=== PATIENT | female | born 1975 | race Hispanic/Latino ===

== ENCOUNTER 2023-12-20 09:56 | Emergency (ER) | payer BC ==
[2023-12-20] MEDS ORDERED: diphenhydrAMINE 50 MG/ML VIAL ONE (11:52)
[2023-12-20] MEDS ORDERED: Prochlorperazine 10 MG/2 ML VIAL ONE (11:56)
[2023-12-20 12:36] LABS: #Basophils 0.03 10x3/uL (0.0-0.2); #Eosinphils Less than 0.03 10x3/uL (0.0-0.7); %Basophils 0.2 % (0.0-1.0); %Lymphocytes 15.3 % (21.0-51.0); %Monocytes 6.3 % (0.0-10.0); %Neutrophils 76.9 % (42.0-75.0); Hematocrit 35.7 % (36.0-47.0); Hemoglobin 11.5 g/dL (12.0-16.0); Mean Corpuscular HGB CONC 32.2 g/dL (32.0-36.0); Mean Corpuscular Volume 83.8 fL (78.0-98.0); Mean Platelet Volume 9.8 fL (7.4-10.4); Platelet Count 580 10x3/uL (130-400); RBC Distribution Width 14.6 % (11.5-14.5); Red Blood Cell (RBC) Count 4.26 mill/uL (4.20-5.40)
[2023-12-20 12:48] LABS: Anion Gap 13 mmol/L (10-20); BUN (Urea Nitrogen) 6 mg/dL (7.0-18.7); Calc. Creatinine Clearance 0 mL/min (70-130); Calcium 8.9 mg/dL (7.8-10.44); Carbon Dioxide 25 mmol/L (22-29); Chloride 103 mmol/L (98-107); Estimated GFR 110; Glucose 95 mg/dL (70-105); Potassium 3.8 mmol/L (3.5-5.1); Sodium 137 mmol/L (136-145)
[2023-12-20 12:56] LABS: PTT 35.6 sec (22.9-36.1); Prothrombin Time 13.3 sec (12.0-14.7)
[2023-12-20] MEDS ORDERED: Ketorolac Tromethamine 30 MG (1 mL) VIAL ONE (14:53)
== END 2023-12-20 17:40 | disposition home or self-care (01) ==
LOC: ERS 09:56
DX: R51.9 Headache, unspecified (principal); R11.0 Nausea; R29.700 NIHSS score 0
CPT/HCPCS: 36415; 70450; 80048; 85025; 85610; 85730; 96374; 96375; J0780; J1200; J1885

== ENCOUNTER 2024-01-17 10:00 | Inpatient (IN) | payer BC ==
[2024-01-17 11:08] LABS: #Basophils 0.03 10x3/uL (0.0-0.2); #Eosinophils Less than 0.03 10x3/uL (0.0-0.7); %Basophils 0.4 % (0.0-1.0); %Monocytes 6.2 % (0.0-10.0); Hematocrit 36.9 % (36.0-47.0); Hemoglobin 11.3 g/dL (12.0-16.0); Mean Corpuscular HGB CONC 30.6 g/dL (32.0-36.0); Mean Corpuscular Hemoglobin 26.2 pg (27.0-31.0); Mean Corpuscular Volume 85.6 fL (78.0-98.0); Mean Platelet Volume 8.8 fL (7.4-10.4); Platelet Count 560 10x3/uL (130-400); RBC Distribution Width 15.5 % (11.5-14.5); Red Blood Cell (RBC) Count 4.31 mill/uL (4.20-5.40)
[2024-01-17 11:29] LABS: ALT (SGPT) 12 U/L (8-55); AST (SGOT) 14 U/L (5-34); Albumin 3.6 g/dL (3.5-5.0); Alkaline Phosphatase 74 U/L (40-110); Anion Gap 11 mmol/L (10-20); BUN (Urea Nitrogen) 8 mg/dL (7.0-18.7); Bilirubin, Total 0.2 mg/dL (0.2-1.2); Calc. Creatinine Clearance 0 mL/min (70-130); Calcium 8.7 mg/dL (7.8-10.44); Carbon Dioxide 26 mmol/L (22-29); Chloride 105 mmol/L (98-107); Estimated GFR 111; Globulin 2.9 g/dL (2.4-3.5); Glucose 90 mg/dL (70-105); Potassium 3.9 mmol/L (3.5-5.1); Protein, Total 6.5 g/dL (6.0-8.3); Sodium 138 mmol/L (136-145)
[2024-01-17] MEDS ORDERED: Lidocaine 1% PF 5 ML VIAL ONE ×2 (12:17→19:41)
[2024-01-17] MEDS ORDERED: Acetaminophen/Codeine 30-300mg Tablet PO PRN (12:50)
[2024-01-17] MEDS ORDERED: Acetaminophen 325 MG TAB PO PRN (12:50)
[2024-01-17 15:31] VITALS: BMI 40.3
[2024-01-17] MEDS: FLU (Fluarix Triv) TS24-25(6MOS UP)/PF 45 MCG/0.5 ML Syringe IM ONE (16:00)
[2024-01-17] MEDS ORDERED: tiZANidine HCl 4 MG TAB PO PRN (19:00)
[2024-01-17] MEDS ORDERED: Vancomycin 1 GM in Premix 1 BAG IVPB SCH (19:00)
[2024-01-17] MEDS ORDERED: Vancomycin 1 GM VIAL ONE ×3 (19:14→22:09)
[2024-01-17] MEDS ORDERED: Thrombin 5000 UNITS/5 ML VIAL ONE (19:14)
[2024-01-17 19:37] LABS: Prothrombin Time 13.4 sec (12.0-14.7)
[2024-01-17 19:38] LABS: PTT 32.8 sec (22.9-36.1)
[2024-01-17] MEDS ORDERED: Bacitracin Zinc Ointment 30 gm TUBE ONE (19:39)
[2024-01-17] MEDS ORDERED: Ondansetron PF 4 MG/2 ML Vial ONE (19:41)
[2024-01-17] MEDS ORDERED: PROPOFOL 20 ML ONE (19:41)
[2024-01-17] MEDS ORDERED: Dexamethasone 20 MG/5 ML VIAL ONE (19:41)
[2024-01-17] MEDS ORDERED: Rocuronium Bromide 10 MG/ML (10ML VIAL) ONE (19:41)
[2024-01-17] MEDS ORDERED: Fentanyl 250 MCG/5 ML VIAL ONE (19:41)
[2024-01-17] MEDS ORDERED: PHENYLEPHRINE-NS 100 MCG/ML 10 ML SYRINGE ONE (20:28)
[2024-01-17] MEDS ORDERED: Phenylephrine 10 MG/ML VIAL ONE (20:57)
[2024-01-17] MEDS ORDERED: SUGAMMADEX SODIUM 200 MG/2 ML VIAL ONE (21:04)
[2024-01-17] MEDS ORDERED: Promethazine HCl 25 MG/ML VIAL IM PRN (22:09)
[2024-01-17] MEDS ORDERED: HYDROmorphone 2 MG/ML VIAL SLOW IVP PRN (22:09)
[2024-01-17] MEDS ORDERED: Ondansetron HCl/PF 4 MG/2 ML Vial IVP PRN (22:09)
[2024-01-17] MEDS ORDERED: HYDROmorphone 2 MG/ML VIAL ONE (22:25)
[2024-01-17] MEDS ORDERED: fentaNYL 50 mcg/mL 1 mL Vial ONE ×2 (23:16→23:39)
[2024-01-17] MEDS ORDERED: Vancomycin (BATCH) 1.5 GM/300 ML BAG ONE (23:57)
[2024-01-18] MEDS ORDERED: fentaNYL 50 mcg/mL 1 mL Vial ONE (00:27)
[2024-01-18] MEDS: HYDROcodone/Acetaminophen 5/325 mg Tablet PO PRN (03:13)
[2024-01-18] MEDS: cefTRIAXone\\ROCEPHIN 1 GM in Sodium Chloride 0.9% 100 ML IVPB SCH (03:27)
[2024-01-18] MEDS: Vancomycin (BATCH) 1.5 GM in Premix 1 BAG IVPB SCH ×2 (03:38→09:27)
[2024-01-18 04:44] LABS: #Basophils 0.04 10x3/uL (0.0-0.2); #Eosinophils Less than 0.03 10x3/uL (0.0-0.7); %Basophils 0.3 % (0.0-1.0); %Lymphocytes 14.5 % (21.0-51.0); %Monocytes 5.4 % (0.0-10.0); %Neutrophils 78.5 % (42.0-75.0); Hematocrit 35.9 % (36.0-47.0); Mean Corpuscular HGB CONC 30.6 g/dL (32.0-36.0); Mean Corpuscular Hemoglobin 26.8 pg (27.0-31.0); Mean Corpuscular Volume 87.6 fL (78.0-98.0); Mean Platelet Volume 8.9 fL (7.4-10.4); Platelet Count 534 10x3/uL (130-400); RBC Distribution Width 15.4 % (11.5-14.5)
[2024-01-18 04:59] LABS: Vancomycin, Random 10.7 ug/mL (See Comment)
[2024-01-18 05:02] LABS: Anion Gap 12 mmol/L (10-20); BUN (Urea Nitrogen) 7 mg/dL (7.0-18.7); Calc. Creatinine Clearance 209 mL/min (70-130); Calcium 8.1 mg/dL (7.8-10.44); Carbon Dioxide 22 mmol/L (22-29); Chloride 107 mmol/L (98-107); Estimated GFR 111; Glucose 115 mg/dL (70-105); Potassium 4.1 mmol/L (3.5-5.1); Sodium 137 mmol/L (136-145)
[2024-01-18] MEDS: Morphine 2 MG/ML VIAL SLOW IVP PRN (05:52)
[2024-01-18] MEDS ORDERED: Levothyroxine Sodium 50 MCG TAB PO SCH (06:00)
[2024-01-18] MEDS: HYDROcodone/Acetaminophen 10/325 mg Tablet PO PRN (07:58)
[2024-01-18 08:52] LABS: Vancomycin, Random 16.9 ug/mL (See Comment)
[2024-01-18] MEDS ORDERED: Ondansetron PF 4 MG/2 ML Vial IVP PRN (14:36)
[2024-01-18] MEDS: cefTRIAXone\\ROCEPHIN 2 GM in Sodium Chloride 0.9% 100 ML IVPB SCH (17:31)
[2024-01-19 04:28] LABS: #Basophils 0.04 10x3/uL (0.0-0.2); #Eosinophils Less than 0.03 10x3/uL (0.0-0.7); %Basophils 0.4 % (0.0-1.0); %Lymphocytes 25.9 % (21.0-51.0); %Monocytes 7.4 % (0.0-10.0); %Neutrophils 64.8 % (42.0-75.0); Hematocrit 34.4 % (36.0-47.0); Hemoglobin 10.7 g/dL (12.0-16.0); Mean Corpuscular HGB CONC 31.1 g/dL (32.0-36.0); Mean Corpuscular Hemoglobin 26.4 pg (27.0-31.0); Mean Corpuscular Volume 84.7 fL (78.0-98.0); Platelet Count 510 10x3/uL (130-400); RBC Distribution Width 15.6 % (11.5-14.5); Red Blood Cell (RBC) Count 4.06 mill/uL (4.20-5.40)
[2024-01-19] MEDS: cefTRIAXone\\ROCEPHIN 2 GM in Sodium Chloride 0.9% 100 ML IVPB SCH (12:00)
[2024-01-20 04:29] LABS: #Basophils 0.04 10x3/uL (0.0-0.2); #Eosinophils Less than 0.03 10x3/uL (0.0-0.7); %Basophils 0.4 % (0.0-1.0); %Lymphocytes 32.9 % (21.0-51.0); %Monocytes 7.2 % (0.0-10.0); %Neutrophils 57.2 % (42.0-75.0); Hematocrit 35.4 % (36.0-47.0); Hemoglobin 10.6 g/dL (12.0-16.0); Mean Corpuscular HGB CONC 29.9 g/dL (32.0-36.0); Mean Corpuscular Hemoglobin 26.2 pg (27.0-31.0); Mean Corpuscular Volume 87.4 fL (78.0-98.0); Mean Platelet Volume 9.4 fL (7.4-10.4); Platelet Count 465 10x3/uL (130-400); RBC Distribution Width 15.5 % (11.5-14.5); Red Blood Cell (RBC) Count 4.05 mill/uL (4.20-5.40)
[2024-01-20] MEDS: VANCOMYCIN IVPB SCH (09:13)
[2024-01-20] MEDS: SODIUM CHLORIDE 0.9% IVPB SCH (09:13)
[2024-01-20] MEDS: Acetaminophen/Codeine 30-300mg Tablet PO PRN (09:26)
[2024-01-21 04:57] LABS: #Basophils 0.03 10x3/uL (0.0-0.2); #Eosinophils Less than 0.03 10x3/uL (0.0-0.7); %Basophils 0.3 % (0.0-1.0); %Lymphocytes 29.1 % (21.0-51.0); %Neutrophils 61.6 % (42.0-75.0); Hematocrit 33.3 % (36.0-47.0); Hemoglobin 10.2 g/dL (12.0-16.0); Mean Corpuscular HGB CONC 30.6 g/dL (32.0-36.0); Mean Corpuscular Hemoglobin 26.6 pg (27.0-31.0); Mean Corpuscular Volume 86.7 fL (78.0-98.0); Mean Platelet Volume 8.9 fL (7.4-10.4); Platelet Count 502 10x3/uL (130-400); RBC Distribution Width 15.5 % (11.5-14.5); Red Blood Cell (RBC) Count 3.84 mill/uL (4.20-5.40)
[2024-01-21 05:41] LABS: Vancomycin, Random 20.3 ug/mL (See Comment)
[2024-01-21] MEDS: Vancomycin (BATCH) 2 GM in Premix 1 BAG IVPB SCH (09:27)
[2024-01-22] MEDS: hydrALAZINE 20 MG/ML VIAL SLOW IVP PRN (06:10)
[2024-01-22] MEDS: Senokot S 8.6-50 MG TAB PO PRN (20:37)
[2024-01-23 08:03] LABS: Vancomycin, Random 13.7 ug/mL (See Comment)
[2024-01-23] MEDS: Labetalol HCl 100 MG/20 ML VIAL SLOW IVP PRN (21:44)
[2024-01-23 21:46] VITALS: BP 152/96
[2024-01-23] MEDS: Vancomycin (BATCH) 1.5 GM in Premix 1 BAG IVPB SCH (22:29)
[2024-01-24 04:41] LABS: Vancomycin, Random 17.5 ug/mL (See Comment)
[2024-01-24 14:53] VITALS: BMI 42.5
[2024-01-24] MEDS: cefTRIAXone (ROCEPHIN) 1 GM VIAL ONE (17:29)
[2024-01-24] MEDS: cefTRIAXone\\ROCEPHIN 2 GM in Sodium Chloride 0.9% 100 ML IVPB SCH (18:21)
[2024-01-26 06:51] LABS: Vancomycin, Random 13.6 ug/mL (See Comment)
[2024-01-26 11:55] VITALS: TEMP 97.8
== END 2024-01-26 15:32 | disposition home or self-care (01) | DRG 26 ==
LOC: ERS 10:00 → SURG B 14:02 → OBSVTOIN 14:02 → CCU 01-18 01:15 → IMCU/EMU 01-18 15:07
PROVIDERS: ADMIT Neurological Surgery; ATTEND Neurological Surgery
PROC: 00Q20ZZ Repair Dura Mater, Open Approach (ICD-10-PCS; principal; 2024-01-17)
PROC: 009Y30Z Drainage of Lumbar Spinal Cord with Drainage Device, Percutaneous Approach (ICD-10-PCS; 2024-01-17)
DX: G96.09 Other spinal cerebrospinal fluid leak (principal); Z68.41 Body mass index [BMI] 40.0-44.9, adult; Z79.899 Other long term (current) drug therapy; Z90.49 Acquired absence of other specified parts of digestive tract; Z98.890 Other specified postprocedural states; Z83.3 Family history of diabetes mellitus; E03.9 Hypothyroidism, unspecified; E66.01 Morbid (severe) obesity due to excess calories
CPT/HCPCS: 36415; 70450; 80048; 80053; 80202; 82565; 83605; 85025; 85610; 85730; 86141; 87070; 87205; 99284; C1713; C1889; G0378; J0360; J0696; J1100; J2272; J2371; J2405; J2704; J3010; J3370; J7030